=== PATIENT | male | born 1945 | race American Indian/Alaskan Native ===

== ENCOUNTER 2016-10-01 08:13 | Outpatient (CLI) | payer MEDICARE ==
[2016-10-01 08:59] LABS: Blood Urea Nitrogen 13 mg/dL (9-20)
[2016-10-01] MEDS ORDERED: NACL ONE (09:30)
--- NOTE | 2016-10-02 10:17 | Cat Scan Report ---
CTA NECK INDICATION: Occlusion and stenosis of bilateral carotid arteries. COMPARISON: None similar. FINDINGS: CTA neck performed utilizing IV contrast. Axial, sagittal, coronal and MIP reconstructions obtained. Patent aortic arch and major arising branch vessels, including bilateral common carotids and vertebral arteries. Mild atherosclerotic calcifications of the aortic arch and at origins of major branches. Left mid subclavian artery atherosclerosis with approximately 50-70% stenosis range suspected as on coronal series 101, images 68-70 near its crossing the first rib anteriorly. Tortuosity of the vertebral arteries noted bilaterally. As on axial series 2, images 70-90, right posterolateral atherosclerotic calcifications suspected over approximately 2 cm craniocaudal extent of the left common carotid artery with approximately 50% stenosis. Right common carotid artery appears patent. Carotid bulbs demonstrate atherosclerotic calcifications bilaterally with approximately 50% or less stenosis. RIGHT ICA: Right proximal ICA past the bifurcation demonstrates atherosclerotic calcifications and a severe, approximately 90% stenosis along a short, approximately 0.5 cm craniocaudal segment as on axial series 2, images 110-125. Thereafter, its caliber relatively restored, though mid-to distal ICA tortuosity noted, extending to the skull base. LEFT ICA: Left proximal ICA past the bifurcation appears patent with mid to distal ICA tortuosity extending to the skull base without significant stenosis suspected. Visualized ECA and intracranial vasculature appears patent. Bilateral cataract surgery. Mild nasal septal deviation. Slight bilateral ethmoid sinusitis. Clear remainder imaged paranasal sinuses and mastoid air cells. Minimal radiopaque dental fillings. C5-C7 cervical spondylosis, including degenerative spurring and disc degeneration. Normal imaged upper lungs with slight biapical scarring. Normal thyroid. Patent airway. CONCLUSION: 1. Bilateral carotid atherosclerotic changes with right proximal ICA severe, approximately 90% short segment stenosis, as described. Carotid Doppler ultrasound would also help further correlate/quantify, as appropriate. 2. Bilateral ICA tortuosity also noted. 3. Left mid common carotid artery and left mid subclavian artery atherosclerotic changes/stenosis. 4. Various other incidental findings, as above. I phoned the above results to Dr. Vega, 10 AM, 10/02/2016. Thank you for the opportunity to participate in this patient's care.
== END 2016-10-01 08:14 | disposition home or self-care (01) ==
LOC: CT 08:13
PROVIDERS: ATTEND Surgery Vascular Surgery
DX: I65.23 Occlusion and stenosis of bilateral carotid arteries (principal); J32.2 Chronic ethmoidal sinusitis; J34.2 Deviated nasal septum; M47.892 Other spondylosis, cervical region
CPT/HCPCS: 36415; 70498; 82565; 84520; Q9967